=== PATIENT | female | born 1990 | race Caucasian/White ===

== ENCOUNTER → 2019-06-09 15:56 | Outpatient (CLI) | payer OTHER, SELFPAY ==
[2019-06-09 16:38] LABS: Add Manual Diff / Slide Review NO; Basophils Absolute Auto 0 /uL (0-100); Basophils Percent Auto 0.4 % (0-2); Eosinophils Absolute Auto 100 /uL (0-450); Hematocrit 40.9 % (36-46); Hemoglobin 13.8 g/dL (12.0-16.0); Lymphocytes Absolute Auto 3000 /uL (1100-4500); Lymphocytes Percent Auto 29.4 % (25-40); Mean Corpuscular HGB Conc 33.9 % (30-36); Mean Corpuscular Hemoglobin 31.4 PG (26-34); Mean Corpuscular Volume 92.5 fL (80-100); Monocytes Absolute Auto 800 /uL (0-900); Neutrophils Absolute Auto 6300 /uL (1500-7000); Neutrophils Percent Auto 61.2 % (50-75); Platelet Count 245 X10^3/uL (150-400); Red Blood Cell Count 4.42 X10^6/uL (4.0-5.2); Red Cell Distribution Width 13.1 % (11.6-14.8); White Blood Cell Count 10.3 X10^3/uL (4.5-11.0)
[2019-06-09 16:43] LABS: Appearance Urine UA CLEAR; Bilirubin Urine UA NEGATIVE (NEGATIVE); Color Urine UA YELLOW; Glucose Urine UA NEGATIVE (Negative); Ketones Urine UA TRACE (NEGATIVE); Leukocyte Esterase Urine UA NEGATIVE (NEGATIVE); Nitrite Urine UA NEGATIVE (Negative); Occult Blood Urine UA NEGATIVE (Negative); Protein Urine UA NEGATIVE (Negative); Specific Gravity Urine UA 1.025 (1.000-1.035); Urobilinogen Urine UA 0.2 E.U./dL (0.2)
[2019-06-09 17:02] LABS: Hemoglobin A1C% w Est Avg Glu 4.9 % (4.0-6.0)
[2019-06-09 17:37] LABS: pH Urine UA 5.5 (4.5-8.0)
[2019-06-09 18:18] LABS: Glucose 82 mg/dL (70-100)
[2019-06-09 20:20] LABS: Hepatitis B Surface Antigen NEGATIVE s/c (NEGATIVE)
[2019-06-09 20:34] LABS: HIV 1 & 2 Ab/Ag 4th Gen Combo NEGATIVE (NEGATIVE); Hep C Virus Ab w/Reflex Quant NEGATIVE s/c (NEGATIVE)
[2019-06-09 20:49] LABS: Rubella Antibody IgG 37.2 IU/mL (>15)
[2019-06-13 20:53] LABS: RPR Screen Nonreactive (Nonreactive)
== END ==
DX: Z34.01 Encounter for supervision of normal first pregnancy, first trimester (principal)
CPT/HCPCS: 36415; 80055; 81003; 82947; 83036; 86787; 86803; 86850; 86900; 86901; 87086; 87389

== ENCOUNTER → 2019-07-14 16:27 | Outpatient (CLI) | payer OTHER, SELFPAY ==
[2019-07-20 08:19] LABS: Sequential Screen 1st Trimeste FINAL PENDING
== END ==
DX: Z34.02 Encounter for supervision of normal first pregnancy, second trimester (principal); Z3A.13 13 weeks gestation of pregnancy; Z36.0 Encounter for antenatal screening for chromosomal anomalies; Z34.01 Encounter for supervision of normal first pregnancy, first trimester
CPT/HCPCS: 36415; 84163; 84702

== ENCOUNTER → 2019-08-14 16:46 | Outpatient (CLI) | payer OTHER, SELFPAY ==
[2019-08-19 14:14] LABS: Sequential Screen 2nd Trimeste SCREEN NEGATIVE
== END ==
DX: Z34.82 Encounter for supervision of other normal pregnancy, second trimester (principal); Z36.0 Encounter for antenatal screening for chromosomal anomalies
CPT/HCPCS: 36415; 82105; 82677; 84163; 84702; 86336

== ENCOUNTER → 2019-10-30 10:31 | Outpatient (CLI) | payer OTHER, SELFPAY ==
[2019-10-30 12:26] LABS: Hematocrit 32.4 % (36-46); Hemoglobin 11.5 g/dL (12.0-16.0)
[2019-10-30 13:17] LABS: GTT (PREG) 1 Hour PP 50gm Dose 145 mg/dL (76-139)
== END ==
PROVIDERS: Referring Provider Obstetrics & Gynecology; Visit Provider Obstetrics & Gynecology
DX: Z34.02 Encounter for supervision of normal first pregnancy, second trimester (principal); Z3A.25 25 weeks gestation of pregnancy
CPT/HCPCS: 36415; 82950; 85014; 85018

== ENCOUNTER → 2019-12-29 10:50 | Outpatient (CLI) | payer OTHER, SELFPAY ==
[2019-12-31 07:49] LABS: Strep Grp B PCR NEG for Grp B Strep
== END ==
DX: Z34.03 Encounter for supervision of normal first pregnancy, third trimester (principal); Z3A.37 37 weeks gestation of pregnancy
CPT/HCPCS: 87653

== ENCOUNTER 2020-01-10 06:31 | Inpatient (IN) | payer OTHER, SELFPAY ==
--- NOTE | 2020-01-10 07:04 | DI.US.S_ITS ---
PROCEDURE: US OB LIMITED INDICATIONS: POSITION OUTSIDE/PRIOR DATING DATA: Last menstrual period (LMP): Not available. LMP-based estimated date of delivery (TUCKER): Not available . First dating scan (date and location): Not available. Estimated date of delivery (TUCKER) from first dating scan: Not available . TECHNIQUE: Real-time scanning was performed of the fetus, with image documentation. Endovaginal scanning: Not needed COMPARISON: None. FINDINGS: A single living intrauterine gestation is present. Presentation: Vertex. Placenta: Placental position is posterior fundal , without previa. Amniotic fluid index: 6.3 cm, normal range is 5-24 cm. heart rate: 144 beats per minute. Estimated gestational age from initial scan: None available . IMPRESSION: Vertex presentation, low amniotic fluid volume, heart rate normal at 144 beats per minute. Current amniotic fluid index is 6.3 cm. Posterior fundal placenta. Reported rupture of membranes, induction on going by clinical report. Dictated by: Yadiel Park M.D. on 01/10/2020 at 8:22 Approved by: Yadiel Park M.D. on 01/10/2020 at 8:25
[2020-01-10 07:17] VITALS: BP 111/63
[2020-01-10 07:57] LABS: Add Manual Diff / Slide Review NO; Basophils Absolute Auto 0 /uL (0-100); Basophils Percent Auto 0.4 % (0-2); Eosinophils Absolute Auto 100 /uL (0-450); Eosinophils Percent Auto 1.2 % (2-4); Hematocrit 33.6 % (36-46); Hemoglobin 11.4 g/dL (12.0-16.0); Lymphocytes Absolute Auto 2400 /uL (1100-4500); Lymphocytes Percent Auto 24.7 % (25-40); Mean Corpuscular Hemoglobin 33.3 PG (26-34); Mean Corpuscular Volume 97.9 fL (80-100); Monocytes Absolute Auto 800 /uL (0-900); Monocytes Percent Auto 8.5 % (3-14); Neutrophils Absolute Auto 6300 /uL (1500-7000); Neutrophils Percent Auto 65.2 % (50-75); Platelet Count 101 X10^3/uL (150-400); Red Blood Cell Count 3.43 X10^6/uL (4.0-5.2); Red Cell Distribution Width 13.1 % (11.6-14.8); White Blood Cell Count 9.6 X10^3/uL (4.5-11.0)
[2020-01-10] MEDS: LACTATED RINGERS 1,000 ML 100 ML IV (08:45)
--- NOTE | 2020-01-10 09:35 | PM.OBHP.1 ---
OB HPI Date/Time Date of admission: 01/10/20 Date Patient Seen: 01/10/20 Time Patient Seen: 09:36 History of Present Condition Chief complaint: EVAL OF LABOR : 1 Para: 0 Estimated Date of Delivery: 01/19/20 Estimated Gestational Age (weeks): 38+5 Narrative: Savannah Feliz is a 29 year old female 1 para 0 at 38 5/7th weeks gestation with ruptured membranes at 5:00 a.m. this morning with clear amniotic fluid. Minimal contractions. History of Present care: good care, initiated at week # (8), number of visits (12) and pounds weight gain (22) Dating criteria: based on 1st trimester US only Ultrasounds: normal mid trimester US Obstetrical complications: none Medical complications: psychiatric Preadmission Labs Blood type: A (+) positive -: Antibody screen: negative, GBS status: negative, HBsAG: negative, HIV: negative and RPR/VDLR: negative -: Chlamydia screen: not detected and Gonorrhea screen: not detected -: Rubella: immune and Varicella: immune HCT: 33.6 HCAB: negative PAP: Normal Integrated screen: Normal Urine: Negative 1 hr GTT: 145 (Did not do 3 hr GTT) Prior (ies) History: N/A Evaluation Evaluation Baseline heart rate: 140 Variability: Moderate (11-25) monitor accelerations: Present monitor decelerations: Absent Contraction Frequency (minutes): 4 Uterine Contraction Intensity: Moderate Category of Tracing: I Cervical dilation (cm): 1 Cervical effacement (%): 75 station: -1 Laboratory results: Laboratory Tests 01/10/20 01/10/20 07:51 07:51 WBC 9.6 RBC 3.43 L Hgb 11.4 L Hct 33.6 L MCV 97.9 MCH 33.3 MCHC 34.0 RDW 13.1 Plt Count 101 L Neut % (Auto) 65.2 Lymph % (Auto) 24.7 L [place] % (Auto) 8.5 Eos % (Auto) 1.2 L Baso % (Auto) 0.4 Neut # (Auto) 6300 Lymph # (Auto) 2400 [place] # (Auto) 800 Eos # (Auto) 100 Baso # (Auto) 0 Blood Type A Positive Antibody Screen Negative Non-invasive Membranes Rupture Test: positive [facility] Medical History (Updated 06/17/19 @ 21:13 by Zulma Peterson) ADHD (Acute ~2008) Asthma (Chronic ~2010) Bipolar 1 disorder (Acute ~2012) Eczema (Chronic ~2010) Post traumatic stress disorder (PTSD) (Chronic ~2008) Surgical History (Updated 06/17/19 @ 21:13 by Zulma Peterson) Anesthesia (Resolved) [place] teeth removed (Resolved ~2009) Family History (Updated 06/17/19 @ 21:14 by Zulma Peterson) Father Bipolar 1 disorder Mental health problem Grandfather Cancer Grandmother Osteoporosis Grandfather No problems noted. Mother depression ADD (attention deficit disorder) Mental health problem Social History marital status: pets and animals: Yes (dogs) education level: college occupational status: employed current occupational exposures/hazards: Yes brandyn/sabianist: Gnosticism special brandyn needs: No Smoking Status: Never smoker Meds Home Medications and Allergies Home Medications Medication Instructions Recorded Confirmed Type prenat.vits,angella,lap-dzdt-wygpe 1 tab PO DAILY 06/09/19 01/10/20 History Allergies Allergy/AdvReac Type Severity Reaction Status Date / Time No Known Drug Allergies Allergy Verified 01/10/20 07:17 Exam Vital Signs (past 8 hours): - 01/10/20 07:17 Blood Pressure 111/63 Narrative Exam Narrative: Generally: Patient is sitting up in bed, in mild distress secondary to contractions Lungs: Clear to auscultation bilaterally Cardiovascular: Regular rate and rhythm Abdomen: Gravid Fundal height: 38 cm Estimated weight: 7 to 7-1/2 lb Extremities: Negative Homans, no edema Objective Labs Result Diagrams: 01/10/20 07:51 Labs: Laboratory Results - last 24 hr 01/10/20 01/10/20 07:51 07:51 WBC 9.6 RBC 3.43 L Hgb 11.4 L Hct 33.6 L MCV 97.9 MCH 33.3 MCHC 34.0 RDW 13.1 Plt Count 101 L Neut % (Auto) 65.2 Lymph % (Auto) 24.7 L [place] % (Auto) 8.5 Eos % (Auto) 1.2 L Baso % (Auto) 0.4 Neut # (Auto) 6300 Lymph # (Auto) 2400 [place] # (Auto) 800 Eos # (Auto) 100 Baso # (Auto) 0 Blood Type A Positive Antibody Screen Negative Assessment and Plan Assessment and Plan Assessment and Plan narrative: Assessment: 29-year-old 1 para 0 at 38-,5/7 weeks gestation with spontaneous rupture of membranes at 5:00 a.m. Early labor Plan: Pitocin augmentation as needed Epidural as necessary If not delivered by 18 hours will begin antibiotics Expected management to spontaneous vaginal delivery Time Spent with Patient Total time spent with greater than 50% in coordination of care (as documented) at patient's floor/unit and/or counseling patient:: 15-24 minutes
[2020-01-10 09:46] LABS: COVID19 -Nasal RAPID Negative (Negative)
[2020-01-10] MEDS: OXYTOCIN PREMIX 30 UNIT/500 ML PLAST..BAG IV (10:18)
--- NOTE | 2020-01-10 14:16 | PM.OBPNLAB ---
Date/Time Date Patient Seen: 01/10/20 Time Patient Seen: 14:16 Pain Control Pain control: tolerating well and epidural Pelvic Exam Dilation (cm): 10 Effacement (%): 100 station: 0 Amniotic membrane status: Ruptured Contractions Contractions on admission: regular Monitor mode: External Pitocin rate (mU/min): 8 Contraction frequency (min): 2 Contraction duration (min): 1 Contraction pattern: Regular Contraction intensity: Strong/Firm Status status: Category l Heart Rate Baseline: 140 Monitor Accelerations: Present Monitor Decelerations: Early Monitor Variability: Moderate Assessment and Plan Assessment: active labor Plan: continuous present management Comments: Begin Pushing
--- NOTE | 2020-01-10 16:39 | PM.OBPRVD ---
Events: Labor Augmentation Labor & Delivery Delivery date: 01/10/20 Intrapartal events: Prolonged 2nd Stage > 2.5 hours Cervical ripening method: none Induction method: none Delivery augmentation: pitocin Delivery monitor: external FHT and external uterine Route of delivery: forceps (Laufe) Indication for instrumentation: other (Direct occiput posterior presentation, 3 hour 2nd stage) Episiotomy description: Right Mediolateral L&D Laceration Description: Perineal - 2nd Degree and Vaginal - 2nd Degree (Right sidewall) Delivery repair: vicryl and chromic Estimated blood loss (mL): 300 Anesthesia type: Epidural Complications: None Narrative: Patient complete and pushed for 3 hours. Vertex at +1 station. Direct occiput posterior presentation. Vacuum was attempted x1. Laufe forceps placed without difficulty. With 2 contractions, the vertex delivered over a right mediolateral episiotomy at 3:56 p.m. The forceps were removed. A nuchal cord x1 was reduced on the perineum. The remainder of the body delivered without difficulty and was placed on mom's abdomen. The cord was double clamped and cut. Cord bloods were obtained. The placenta delivered intact with a 3 vessel cord at 3:59 p.m. Pitocin was given in the IV fluids. The fundus was massaged to firm. A 5 cm right vaginal sidewall laceration was noted and repaired with 2 0 Vicryl in the usual running interlocking fashion. 0 Vicryl was placed on the capsule of the sphincter. The perineum was closed with 2 0 Vicryl with a running suture. The skin was closed with 2 0 chromic in a subcuticular fashion. A retention suture was placed on the perineum with 2 0 Vicryl with the stitch on the patient's left side. Hemostasis was achieved. Estimated blood loss 300 cc. Apgars 9 at 1 minute and 9 at 5 minutes. Epidural analgesia. . Mom and infant stable to recovery. Plan for aftercare: To [facility]
[2020-01-10] MEDS: IBUPROFEN 600 MG TABLET PO (19:27)
[2020-01-10] MEDS: DERMOPLAST SPRAY 20% 60 ML 1 SPRAY TOP (19:28)
[2020-01-11 06:53] LABS: Hematocrit 30.9 % (36-46); Hemoglobin 10.6 g/dL (12.0-16.0)
[2020-01-11] MEDS: IBUPROFEN 600 MG TABLET PO ×2 (07:21→13:26)
[2020-01-11] MEDS: PRENATAL VIT,CALC/IRON/FOLIC 1 TABLET 1 TAB PO (07:22)
[2020-01-11] MEDS: DOCUSATE 100 MG CAPSULE PO (07:22)
--- NOTE | 2020-01-11 10:22 | PM.OBPN.1 ---
Subjective - OB Subjective Patient comments: no complaints [place] baby status: doing well feeding status: exclusively breast feeding Narrative: Patient is a 29-year-old 1 para 1 day # 1 status post forceps assisted vaginal delivery with repair. is going well. She is using ibuprofen for perineal discomfort. She has been able to void without any difficulties. Her bleeding is tapering. Date Patient Seen: 01/11/20 Time Patient Seen: 10:23 Exam Vital Signs (past 8 hours): Generally: Patient is sitting up in bed, holding , no acute distress Lungs: Clear to auscultation bilaterally Cardiovascular: Regular rate and rhythm Fundus: Firm at U -1 Extremities: Negative Homans, no edema Objective Labs Result Diagrams: 01/11/20 06:43 Labs: Laboratory Results - last 24 hr 01/11/20 06:43 Hgb 10.6 L Hct 30.9 L Assessment & Plan Plan day: 1 Comments: Will re-evaluate for possible discharge after lunch Time Spent With Patient Time: Total time spent is greater than 50% in coordination of care (as documented) at patient's floor/unit and/or counseling patient: Time with patient: 15-24 minutes
[2020-01-11] MEDS: OXYCODONE/ACETAMINOPHEN 5/325 TABLET 1 TAB PO ×2 (13:26→18:43)
[2020-01-11 17:01] VITALS: BP 109/69; PULSE 77; RESP 16; TEMP 37.3
--- NOTE | 2020-01-11 17:42 | P.DS_ITS ---
Discharge Providers Provider Date of admission: 01/10/20 06:31 Discharge Date: 01/11/20 Primary care physician: Sergio Nava MD Consults: 01/11/20 16:36 Consult to Science Instructor Routine Comment: Discharge provider: Lola Waldron MD Summary Hospital Course Date Patient Seen: 01/11/20 Time Patient Seen: 17:42 Procedures: Pitocin augmentation Epidural analgesia Forceps assisted vaginal delivery Episiotomy and right vaginal sidewall laceration repair Hospital Course: Patient is a 29 year patient is 1 para 1 day # 1 status post forceps assisted vaginal delivery. She has urinated without any difficulties. is going well. Her bleeding is tapering. Her pain is well controlled. She is discharged home to follow up at 6 weeks Peripartum Data Delivery Method: Assisted Delivery (Forceps assisted) Laceration Description: Vaginal - 2nd Degree (And PCI to me) Episiotomy description: Right Mediolateral (And repair) Procedures: Episiotomy Epidural analgesia Pitocin augmentation Forceps assisted vaginal delivery Right vaginal sidewall repair Episiotomy repair complications: none Status at Discharge Cognitive/behavioral status at discharge: oriented Functional status at discharge: independent ambulation Overall status at discharge: patient is progressing back to baseline Time Spent with Patient Time attestation: Total time spent providing and/or coordinating discharge services: Time spent: Less than 30 minutes Objective Labs Result Diagrams: 01/11/20 06:43 Labs: Laboratory Results - last 24 hr 01/11/20 06:43 Hgb 10.6 L Hct 30.9 L Exam Vital Signs (past 8 hours): - 01/11/20 17:01 Temperature 99.1 F Pulse Rate 77 Respiratory Rate 16 Blood Pressure 109/69 Discharge Plan Discharge Plan Patient Disposition: Home Discharge comment: Call with fever, chills or bleeding vaginally more than a pad in an hour Discharge orders & Medications Prescriptions: New oxycodone-acetaminophen [Percocet] 5-325 mg tablet 1 tab PO Q4-6H PRN (Reason: pain) Qty: 20 RF: 0 Continued prenat.vits,angella,tvn-urhk-puhfs Tablet 1 tab PO DAILY RF: 0 Follow up/Referrals: Lola Waldron MD [Physician] - 6 Weeks (February 22, Saturday 10am with Dr Waldron) Sergio Nava MD [Primary Care Provider] - Diet/Activity/Treatments Diet: Regular Activity: No intercourse Skin/Wound/Dressing Care Report to your healthcare provider any signs of infection, such as:: chills, fev er, increased pain and unusual drainage Visit Report/Discharge Packet Instructions: DI for Labor and Delivery, Vaginal , DI for Prescription Opioid Use Stand Alone Forms: Discharge: Care Discharge Data Primary Care Provider: Sergio Nava
== END 2020-01-11 19:16 | disposition home or self-care (01) | DRG 807 ==
PROVIDERS: Admitting Provider Obstetrics & Gynecology; Referring Provider Obstetrics & Gynecology; Visit Provider Obstetrics & Gynecology
DX: O42.02 Full-term premature rupture of membranes, onset of labor within 24 hours of rupture (principal); Z37.0 Single live birth; Z3A.38 38 weeks gestation of pregnancy; O70.1 Second degree perineal laceration during delivery; O64.0XX0 Obstructed labor due to incomplete rotation of fetal head, not applicable or unspecified; O63.1 Prolonged second stage (of labor); Z11.59 Encounter for screening for other viral diseases
CPT/HCPCS: 01967; 36415; 59050; 59400; 59409; 76815; 85014; 85018; 85025; 86850; 86900; 86901; 87635; G0379; J2590

== ENCOUNTER → 2020-10-14 12:53 | Outpatient (CLI) | payer OTHER, SELFPAY ==
[2020-10-14 13:54] LABS: Add Manual Diff / Slide Review NO; Basophils Absolute Auto 0 /uL (0-100); Basophils Percent Auto 0.3 % (0-2); Eosinophils Absolute Auto 100 /uL (0-450); Eosinophils Percent Auto 1.2 % (2-4); Hematocrit 39.5 % (36-46); Hemoglobin 13.5 g/dL (12.0-16.0); Lymphocytes Absolute Auto 2600 /uL (1100-4500); Lymphocytes Percent Auto 27.3 % (25-40); Mean Corpuscular HGB Conc 34.1 % (30-36); Mean Corpuscular Hemoglobin 30.8 PG (26-34); Mean Corpuscular Volume 90.3 fL (80-100); Monocytes Absolute Auto 700 /uL (0-900); Monocytes Percent Auto 7.1 % (3-14); Neutrophils Absolute Auto 6200 /uL (1500-7000); Neutrophils Percent Auto 64.1 % (50-75); Platelet Count 251 X10^3/uL (150-400); Red Blood Cell Count 4.38 X10^6/uL (4.0-5.2); Red Cell Distribution Width 13.6 % (11.6-14.8); White Blood Cell Count 9.7 X10^3/uL (4.5-11.0)
[2020-10-14 14:03] LABS: Appearance Urine UA SL CLOUDY; Bilirubin Urine UA NEGATIVE (NEGATIVE); Color Urine UA YELLOW; Glucose Urine UA NEGATIVE (Negative); Ketones Urine UA NEGATIVE (NEGATIVE); Leukocyte Esterase Urine UA 1+ (NEGATIVE); Nitrite Urine UA NEGATIVE (Negative); Occult Blood Urine UA NEGATIVE (Negative); Protein Urine UA NEGATIVE (Negative); Specific Gravity Urine UA >=1.030 (1.000-1.035); Urobilinogen Urine UA 0.2 E.U./dL (0.2)
[2020-10-14 14:04] LABS: pH Urine UA 5.5 (4.5-8.0)
[2020-10-14 14:29] LABS: RBC Urine 1-5/HPF (0-5/HPF); Squamous Epithelial Cell Urine 5-10 /HPF (0-5/HPF); WBC Urine 5-10/HPF (0-5/HPF)
[2020-10-14 14:30] LABS: Bacteria Urine Few (2-10)
[2020-10-15 06:10] LABS: RPR Screen Non Reactive (Non Reactive)
[2020-10-15 08:11] LABS: Varicella IgG Antibody 1155 index (Immune >165)
[2020-10-17 16:25] LABS: Hepatitis B Surface Antigen NEGATIVE s/c (NEGATIVE); Rubella Antibody IgG 28.4 IU/mL (>15)
[2020-10-17 17:33] LABS: HIV 1 & 2 Ab/Ag 4th Gen Combo NEGATIVE (NEGATIVE); Hep C Virus Ab w/Reflex Quant NEGATIVE s/c (NEGATIVE)
== END ==
PROVIDERS: Referring Provider Obstetrics & Gynecology; Visit Provider Obstetrics & Gynecology
DX: Z34.81 Encounter for supervision of other normal pregnancy, first trimester (principal)
CPT/HCPCS: 36415; 80055; 81003; 81015; 86787; 86803; 86850; 86900; 86901; 87086; 87389